=== PATIENT | female | born 1980 | race Caucasian/White ===

== ENCOUNTER 2023-10-27 07:47 | Emergency (ER) | payer SELFPAY ==
[2023-10-27] VITALS (12 sets, daily range): BP systolic 103–129; BP diastolic 63–99; PULSE 53–93; RESP 16–24; TEMP 36.3; O2SAT 94–100; BMI 24.7
--- NOTE | 2023-10-27 08:01 | ED.GENADULT ---
HPI - General Adult General Chief complaint: ETOH/Substance Use Stated complaint: AMS Time Seen by Provider: 10/27/23 08:01 History of Present Illness ED Provider: Félix MONTELONGO narrative: The patient is a 43-year-old female who was brought to the hospital by a friend because she has been behaving in an unusual manner. Apparently a friend was concerned about how she was doing. Allegedly she had admitted to using 7 bags of heroin, crack cocaine, and marijuana. Apparently the patient had initially said that she was possibly in withdrawal from drugs. At the time that I saw the patient she was acutely agitated not give any additional history. Related Data Allergies Allergy/AdvReac Type Severity Reaction Status Date / Time No Known Allergies Allergy Verified 10/27/23 07:53 Review of Systems Review of Systems: Yes all other systems are reviewed and are negative [facility] Social History Social History Advance Directives: No Physical Exam ED Vital Signs: Vital Signs - 24 hr 10/27/23 07:49 10/27/23 08:02 10/27/23 09:34 Temperature 97.3 F Pulse Rate 77 90 67 Respiratory Rate 20 18 20 Blood Pressure 124/83 116/90 H Pulse Oximetry 98 98 97 Oxygen Delivery Method Room Air Room Air Room Air 10/27/23 09:43 10/27/23 09:58 10/27/23 10:13 Temperature Pulse Rate 53 87 93 Respiratory Rate 20 18 18 Blood Pressure Pulse Oximetry 98 96 100 Oxygen Delivery Method Room Air Room Air Room Air 10/27/23 10:28 10/27/23 11:24 10/27/23 15:22 Temperature Pulse Rate 75 65 53 Respiratory Rate 24 H 21 H 19 Blood Pressure 129/77 129/99 H Pulse Oximetry 94 100 Oxygen Delivery Method Room Air Room Air Room Air 10/27/23 18:34 Temperature Pulse Rate 59 Respiratory Rate 16 Blood Pressure 103/69 Pulse Oximetry 100 Oxygen Delivery Method Room Air BMI result Body Mass Index 24.7 Const Other: The patient is a 43-year-old woman who was acutely agitated and incoherent HENNC Other: No facial asymmetry. Mucous membranes not obviously dry. Eyes Other: Pupils were small, round, equal, conjunctivae were clear, extraocular movements seemed intact. Neck Other: No nuchal rigidity. No neck masses Resp Effort & Inspection: normal respiratory effort Auscultation: clear to auscultation bilaterally Cardio Rate: regular rate Rhythm: regular rhythm Heart sounds: S1 normal heart sound present and S2 normal heart sound present GI Other: Abdomen was soft and seems nontender Skin Other: The patient has track flores on her arms. No signs of cellulitis. Neuro Other: The patient was acutely agitated and minimally coherent. Her speech content was only to protest what was being done. No slurring of her speech. Face was symmetrical. Tongue seemed midline. Eye movements seem intact. She seems to have symmetrical tone in her extremities. She has a non lateralizing exam Extrem Other: No peripheral edema Medications Administered Discontinued Medications Generic Name Dose Route Start Last Admin Trade Name Freq PRN Reason Stop Dose Admin Diphenhydramine HCl 50 mg 10/27/23 09:23 10/27/23 09:28 Diphenhydramine Hcl 50 Mg/Ml Vial IM 10/27/23 09:24 50 mg ONCE ONE Administration Sodium Chloride 1,000 mls @ 999 mls/hr 10/27/23 13:45 10/27/23 17:24 Ns IV 10/27/23 14:45 Infused .Q1H1M LEONID Infusion Lorazepam 2 mg 10/27/23 08:05 10/27/23 08:13 Lorazepam 2 Mg/Ml Vial IM 10/27/23 08:06 2 mg ONCE ONE Administration Lorazepam 2 mg 10/27/23 09:23 10/27/23 09:28 Lorazepam 2 Mg/Ml Vial IM 10/27/23 09:24 2 mg ONCE ONE Administration Lorazepam 2 mg 10/27/23 14:46 10/27/23 14:50 Lorazepam 2 Mg/Ml Vial IVPUSH 10/27/23 14:47 2 mg ONCE ONE Administration Midazolam HCl 5 mg 10/27/23 08:23 10/27/23 08:33 Midazolam Hcl/Pf 2 Mg/2 Ml Vial IM 10/27/23 08:24 5 mg ONCE ONE Administration Olanzapine 10 mg 10/27/23 08:23 10/27/23 08:31 Olanzapine 10 Mg Vial IM 10/27/23 08:24 10 mg ONCE ONE Administration Olanzapine 10 mg 10/27/23 09:23 10/27/23 09:29 Olanzapine 10 Mg Vial IM 10/27/23 09:24 10 mg ONCE ONE Administration Medical Decision Making Medical Decision Making MDM Narrative: Patient is a 43-year-old woman who was brought here by a friend and the initial information at triage was that she might have used heroin, cocaine, and marijuana and that she might be in some kind of drug withdrawal. She was very agitated when I first saw her and quite incoherent. She was therefore given sedatives. She had to be held to be given the sedatives and was placed in soft restraints ultimately. Ultimately we were able to establish an IV and give her IV fluids as well. Laboratory evaluation showed a white count of 7.2, he hemoglobin 14.9, platelet count 201, normal differential on her white count. Metabolic panel showed dioxide of 20, an anion gap of 14, normal renal function. CPK was elevated at 800. This was repeated and was stable. Acetaminophen and salicylate labs are negative. My overall impression is that the patient presented with a drug related agitation requiring sedation. She received significant medications for sedation. She will be observed until she is more interview verbal. I will sign her out to the oncoming emergency physician at change of shift. Lab Data 10/27/23 12:29 10/27/23 12:29 Labs: Lab Results 10/27/23 10/27/23 Range/Units 12:29 18:24 WBC 7.2 (4.8-10.8) X10*3/uL RBC 4.95 (4.20-5.50) X10*6/uL Hgb 14.9 (12.0-16.0) g/dl Hct 43.6 (37.0-47.0) % MCV 88.1 (80.0-98.0) fL MCH 30.1 (27.0-33.0) pg MCHC 34.2 (31.0-35.0) g/dl RDW 12.0 (11.0-16.0) % Plt Count 201 (160-400) X10*3/uL MPV 9.8 (9.4-12.3) fL Immature Gran % (Auto) 0.3 (0.0-0.4) % Neut % (Auto) 70.8 (45-73) % Lymph % (Auto) 23.3 (20-40) % [place] % (Auto) 3.9 (2-11) % Eos % (Auto) 1.0 (0-4) % Baso % (Auto) 0.7 (0-2) % Lymph # (Auto) 1.7 (1.2-4.9) X10*3/uL [place] # (Auto) 0.3 (0.1-1.2) X10*3/uL Eos # (Auto) 0.1 (0.0-0.4) X10*3/uL Baso # (Auto) 0.1 (0.0-0.2) X10*3/uL Abs Immat Gran (auto) 0.02 (0.00-0.03) X10*3/uL Absolute Neuts (auto) 5.1 (2.0-8.3) x10*3/uL Absolute Nucleated RBC 0.000 (0.0-0.012) X10*3/uL Nucleated RBC % (auto) 0.0 (0.0-0.2) /100WBC Sodium 141 (135-145) mmol/L Potassium 4.1 (3.3-5.1) mmol/L Chloride 111 H (96-108) mmol/L Carbon Dioxide 20 L (22-29) mmol/L Anion Gap 14 (12-20) BUN 15 (9-16) mg/dL Creatinine 0.73 (0.5-1.4) mg/dL Estim Creat Clear Calc 83.8 Estimated GFR > 60 Random Glucose 110 (60-115) mg/dL Calcium 9.4 (8.4-10.2) mg/dL Total Bilirubin 0.5 (0.0-1.0) mg/dL AST 38 H (5-31) U/L ALT 27 (0-31) U/L Alkaline Phosphatase 62 (39-117) U/L Total Creatine Kinase 898 H 892 H (26-140) U/L Total Protein 7.6 (6.5-8.0) g/dL Albumin 4.0 (3.5-5.0) g/dL Lipase 12 (8-78) U/L Beta HCG, Quant < 2 mIU/mL Salicylates < 5.0 L (15-30) mg/dL Acetaminophen < 3 (<30) mcg/mL Ethyl Alcohol < 10 mg/dL Discharge Plan Discharge Clinical Impression: Altered mental status, Substance use disorder Patient Disposition: Still a Patient Print Language: [place]
--- NOTE | 2023-10-27 08:10 | PC.NURSE ---
Pt. thrashing and being combative towards staff, stating that she is withdrawing and is requesting meds. MD Félix to order Ativan.
[2023-10-27] MEDS: LORazepam 2 MG/ML VIAL IM ×2 (08:13→09:28)
--- NOTE | 2023-10-27 08:14 | PC.NURSE ---
Ativan 2mg IM administered per JUN.
[2023-10-27] MEDS: OLANZapine 10 MG VIAL IM ×2 (08:31→09:29)
[2023-10-27] MEDS: Midazolam HCl/PF 2 MG/2 ML VIAL 5 MG IM (08:33)
--- NOTE | 2023-10-27 09:25 | PC.NURSE ---
Pt. continues to be aggressive and uncooperative towards staff. Félix CORDERO ordering additional meds - see JUN.
[2023-10-27] MEDS: diphenhydrAMINE HCL 50 MG/ML VIAL IM (09:28)
--- NOTE | 2023-10-27 09:54 | PC.NURSE ---
Pt. on cardiac exercise physiologist at this time
--- NOTE | 2023-10-27 09:57 | PC.NURSE ---
Pt. put in soft wrist restraints temporarily for medical reasons - to obtain VS, put on publicity writer. Without soft wrists, pt. is thrashing and too restless to get vitals or be on the publicity writer.
[2023-10-27 12:39] LABS: MANUAL DIFF FLAG NO
[2023-10-27 12:44] LABS: Basophils Absolute Auto 0.1 X10*3/uL (0.0-0.2); Basophils Percent Auto 0.7 % (0-2); Eosinophils Absolute Auto 0.1 X10*3/uL (0.0-0.4); Hematocrit 43.6 % (37.0-47.0); Hemoglobin 14.9 g/dl (12.0-16.0); Imm Gran Abs Auto 0.02 X10*3/uL (0.00-0.03); Imm Gran Pct Auto 0.3 % (0.0-0.4); Lymphocytes Absolute Auto 1.7 X10*3/uL (1.2-4.9); Lymphocytes Percent Auto 23.3 % (20-40); Mean Corpuscular HGB Conc 34.2 g/dl (31.0-35.0); Mean Corpuscular Hemoglobin 30.1 pg (27.0-33.0); Mean Corpuscular Volume 88.1 fL (80.0-98.0); Mean Platelet Volume 9.8 fL (9.4-12.3); Monocytes Absolute Auto 0.3 X10*3/uL (0.1-1.2); Monocytes Percent Auto 3.9 % (2-11); Neutrophils Absolute Auto 5.1 x10*3/uL (2.0-8.3); Neutrophils Percent Auto 70.8 % (45-73); Platelet Count 201 X10*3/uL (160-400); Red Blood Count 4.95 X10*6/uL (4.20-5.50); White Blood Count 7.2 X10*3/uL (4.8-10.8)
[2023-10-27 13:10] LABS: Alanine Aminotransferase 27 U/L (0-31); Alkaline Phosphatase 62 U/L (39-117); Anion Gap 14 (12-20); Aspartate Amino Transferase 38 U/L (5-31); Bilirubin Total 0.5 mg/dL (0.0-1.0); Blood Urea Nitrogen 15 mg/dL (9-16); Calcium 9.4 mg/dL (8.4-10.2); Carbon Dioxide 20 mmol/L (22-29); Chloride 111 mmol/L (96-108); Creatinine Clr Calc Pharmacy 83.8; Estimated Glomerular Filt Rate > 60; Glucose Random 110 mg/dL (60-115); Potassium 4.1 mmol/L (3.3-5.1); Sodium 141 mmol/L (135-145); Total Protein 7.6 g/dL (6.5-8.0)
[2023-10-27 13:11] LABS: Ethanol < 10 mg/dL
[2023-10-27 13:14] LABS: HCG Quantitative < 2 mIU/mL; Lipase 12 U/L (8-78)
[2023-10-27] MEDS: LORazepam 2 MG/ML VIAL IVPUSH (14:50)
[2023-10-27] MEDS: 0.9 % Sodium Chloride 1,000 ML 999 ML IV (14:51)
[2023-10-27 18:50] LABS: Acetaminophen LAB < 3 mcg/mL (<30); Salicylate < 5.0 mg/dL (15-30)
--- NOTE | 2023-10-27 19:32 | PC.NURSE ---
assumed care of the pt at 1915. pt is resting on stretcher in 17H, on safety relief valve technician, respirations even and unlabored, in no apparent distress. plan for pt to wake up and be discharged when safe enough to ambulate and find ride home., plan of care ongoing.
--- NOTE | 2023-10-27 22:45 | PC.NURSE ---
pt ambulated to and from bathroom with a steady gait.
[2023-10-28 03:55] VITALS: BP 125/77; PULSE 61; RESP 16; TEMP 36.7; O2SAT 98
[2023-10-28 06:25] VITALS: BP 153/82; PULSE 78; RESP 16; TEMP 36.8; O2SAT 98
--- NOTE | 2023-10-28 06:48 | PC.NURSE ---
pt continues to ask to leave, is told she can leave as long as she has a safe ride to call to pick her up , however when pt handed the phone she cannot remember anyones phone # to call. pt then falls back asleep on stretcher.
[2023-10-28 08:26] VITALS: BP 143/78; PULSE 66; RESP 16; TEMP 36.6; O2SAT 99
[2023-10-28 08:39] VITALS: BP 143/78; PULSE 66; RESP 16; TEMP 36.6; O2SAT 99
== END 2023-10-28 08:40 | disposition home or self-care (01) ==
PROVIDERS: Emergency Medicine; Emergency Provider Emergency Medicine Emergency Medical Services; PCP Internal Medicine
DX: R41.82 Altered mental status, unspecified (principal); F19.988 Other psychoactive substance use, unspecified with other psychoactive substance-induced disorder; R45.1 Restlessness and agitation
CPT/HCPCS: 36415; 80053; 80143; 80179; 80307; 82550; 83690; 84702; 85025; 96361; 96372; 96374; 99285; J1200; J2060; J2250; J2359